=== PATIENT | male | born 1985 | race Caucasian/White ===

== ENCOUNTER 2025-02-03 12:21 | Emergency (ER) | payer OTHER, SELFPAY ==
[2025-02-03 12:24] VITALS: BP 118/74; PULSE 84; RESP 15; TEMP 36.7; O2SAT 100
--- NOTE | 2025-02-03 13:07 | ED.GENADULT ---
HPI - General Adult General Chief complaint: Unspecified Stated complaint: staph infection? Time Seen by Provider: 02/03/25 13:03 History of Present Illness HPI narrative: Pt presents with nasal congestion and sinus congestion. Pt says he tested positive for MRSA in nose yesterday and was told they called in an antibiotic but pt says it was not there this morning in [place]. Pt has history of MRSA sinus infection and thnk he got sptic before. Pt felt febrile earlier and took tylenol. Pt has some body aches. BP fine here. Related Data Home Medications ?Medication ?Instructions ?Recorded ?Confirmed ?Last Taken ?Type Ketamine-Karuna .Route 11/23/22 Unknown History Probiotics BYMOUTH 11/23/22 Unknown History Testosterone .Route 11/23/22 Unknown History Allergies Allergy/AdvReac Type Severity Reaction Status Date / Time No Known Allergies Allergy Verified 11/23/22 09:21 Review of Systems Review of Systems: All systems reviewed & are unremarkable except as noted in HPI and below PMFSH Surgical History Surgical History (Updated 08/09/19 @ 11:13 by Vannesa Blue, FISHING HAND) History of sleeve gastrectomy Family History Family History (Updated 11/23/22 @ 09:12 by Darcie Queen MA) Father History of ETOH abuse Mother Depression Disorder of thyroid History of ETOH abuse Grandparent No problems noted. 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 Gender identity (if verbalized by the patient): Male Agree to blood products: Yes Exam Const: General: cooperative, healthy appearing and no acute distress HENMT: Head: normal to inspection Face/Nose/Sinus: No nasal discharge present and Facial tenderness on exam of face and sinuses Face and sinus: sinus tenderness Mouth: Yes Normal oral and palatal mucosa present Neck: Neck: normal visual inspection, full ROM and no meningeal signs Resp: Effort & Inspection: normal respiratory effort and able to speak in complete sentences Auscultation: clear to auscultation bilaterally Cardio: Rate: regular rate Rhythm: regular rhythm Skin: General skin exam: normal color and no rashes or lesions noted Neuro: General: patient oriented x3, moves all extremities, no meningeal signs and no focal motor deficits Extrem: General: normal to inspection and full ROM Psych: Appearance: grossly normal Mental Status: mental status grossly normal Speech and movement: Normal speech and movement present Affect: normal affect Course Vital Signs Vital signs: Vital Signs Temperature 98.1 F 02/03/25 12:24 Pulse Rate 84 02/03/25 12:24 Respiratory Rate 15 02/03/25 12:24 Blood Pressure 118/74 02/03/25 12:24 Pulse Oximetry 100 02/03/25 12:24 Oxygen Delivery Room Air 02/03/25 12:24 Temperature 98.1 F 02/03/25 12:24 Pulse Rate 78 02/03/25 13:31 Respiratory Rate 16 02/03/25 13:31 Blood Pressure 121/79 02/03/25 13:31 Pulse Oximetry 99 02/03/25 13:31 Oxygen Delivery Room Air 02/03/25 12:24 Medical Decision Making MDM Narrative Medical decision making narrative: discussed with pt and comfortable not doing lab work up will try clidamycin and if worse he will return. Vital Signs Vital Signs: Vital Signs Temperature 98.1 F 02/03/25 12:24 Pulse Rate 84 02/03/25 12:24 Respiratory Rate 15 02/03/25 12:24 Blood Pressure 118/74 02/03/25 12:24 Pulse Oximetry 100 02/03/25 12:24 Oxygen Delivery Room Air 02/03/25 12:24 Temperature 98.1 F 02/03/25 12:24 Pulse Rate 78 02/03/25 13:31 Respiratory Rate 16 02/03/25 13:31 Blood Pressure 121/79 02/03/25 13:31 Pulse Oximetry 99 02/03/25 13:31 Oxygen Delivery Room Air 02/03/25 12:24 Discharge Plan Discharge Clinical Impression: Sinusitis Patient Disposition: Home Condition: Stable Instructions: Antibiotic Form, Sinusitis (ED) Patient Language: Mauritian Prescriptions: New clindamycin HCl [Cleocin HCl] 300 mg capsule 300 mg PO Q6H Qty: 40 0RF No Action Testosterone .Route Rx Instructions: 75mg Weekly Ketamine-Karuna .Route Rx Instructions: 80mg PRN Anxiety Probiotics BYMOUTH Follow-up/Referrals: Patricio Mckeon MD [Physician] -
--- OUTSIDE RECORDS SUMMARY | 2025-02-03 13:14 | XMS_ITS | Data Portability ---
Author Organization [facility] [place], [facility] Address [address] [place] [address] Assessment No assessment recorded. Plan of Treatment Reminders Order Date Submit Date Provider Last Modified By Organization Details Last Modified Time Details Appointments None recorded. Lab None recorded. Referral None recorded. Procedures None recorded. Surgeries None recorded. Imaging None recorded. Medication Orders Augmentin 500 mg-125 mg tablet 2013 014 [email or web address] Not available 4 16:25:46 prednisone 20 mg tablet 2013 014 [email or web address] Not available 4 16:25:46 Patanol 0.1 % eye drops 2013 014 [email or web address] Not available 4 14:59:44 Singulair 10 mg tablet 2013 014 [email or web address] Not available 4 14:59:44 Flonase 50 mcg/actuat ion nasal spray,susp ension 2013 014 [email or web address] Not available 4 15:01:07 Patient TargetsNo targets recorded. Patient InstructionsNo instructions recorded. Reason for Referral None Reported. Problems Name Problem SNOMED Code Status Onset Date Resolution Date Notes Provider Name and Address Organization Details Recorded Time Carpal tunnel syndrome 41930434 Active Claribel bowen [facility] [place] 4 15:01:07 Seasonal allergy 068936741 Active Claribel bowen, [facility] [place] 4 15:01:07 Acute secretory otitis media 204744679 [facility] 4 16:25:46 Problem Notes None recorded. Medical Equipment None Reported. Allergies No known drug allergies Medications Name Sig Start Date Stop Date Status Note LastModified by Organization Details LastModified Time Singulair 10 mg tablet Take 1 tablet every day by oral route as needed for 30 days. 2013 active Not Available Not Available Not Avai lable Patanol 0.1 % eye drops Instill 1 drop twice a day by ophthalmi c route as needed for 30 days. 2013 active Not Available Not Available Not Avai lable prednisone 20 mg tablet Take 1 tablet every day by oral route in the morning for 5 days. 01/07 completed Not Available Not Available Not Available Flonase 50 mcg/actuati on nasal spray,suspe nsion Inhale 2 sprays every day by intranasa l route as needed for 30 days. 2013 active Not Available Not Available Not Avai lable Augmentin 500 mg-125 mg tablet Take 1 tablet every 12 hours by oral route for 10 days. 01/12 completed Not Available Not Available Not Available nabumetone 500 mg tablet TAKE 1 TABLET BY MOUTH TWICE A DAY active Not Available Not Available No t Available Vitals Date Recorded Body height Body weight Body mass index (BMI) Heart rate Respiratory rate Body temperature Systolic blood pressure Diastolic blood pressure Provider Name and Address Organization Details Last Updated DateTime 4 167.64 cm 291690. 12189 g 35.7 kg/m2 76 /min 22 /min 98.7 [degF] 132 mm[Hg] 78 mm[Hg] Claribel Alicia [facility] 4 13:56:27 Date Recorded Body height Body weight Body mass index (BMI) Heart rate Body temperature Systolic blood pressure Diastolic blood pressure Provider Name and Address Organization Details Last Updated DateTime 4 167.64 cm 247275. 21851 g 37 kg/m2 97 /min 98.2 [degF] 120 mm[Hg] 62 mm[Hg] Bailey Cabrera [facility] 4 14:19:40 Date Recorded Body height Body weight Body mass index (BMI) Heart rate Body temperature Systolic blood pressure Diastolic blood pressure Provider Name and Address Organization Details Last Updated DateTime 4 167.64 cm 599313. 2451 g 37.1 kg/m2 83 /min 98.7 [degF] 126 mm[Hg] 68 mm[Hg] Bailey Cabrera [facility] [place] 4 15:57:36 Social History Question Answer Notes LastModified by Organizat ion Details LastModified Time Tobacco Smoking Status Never Smoker Bailey Cabrera [facility] 10/24/2013 16:16:43 What Is Your Level Of Caffeine Consumption? Occasional [email or web address] Information not available 10/24/2013 Education 4 Year College [email or web address] Informatio n not available 10/24/2013 Marital Status Single [email or web address] Informatio n not available 10/24/2013 Sex: Unknown Functional Status Question Answer Note LastModified by Organizat ion Details LastModified Time What is your level of alcohol consumption? Occasional [email or web address] Information not available 10/24/2013 What is your exercise level? Moderate [email or web address] Information not available 10/24/2013 Mental Status None recorded. Family History Relationship Description Onset Age of this Age Resolved Age Notes LastModified by Organization Details LastModified Time Maternal Grandmother Cerebrovascu lar accident [email or web address] Not available 16:16:43 Maternal Grandfather Heart disease [email or web address] Not available 2013 16:16:43 Medical History Condition Response Allergies Y Past Encounters Encounter ID Performer Location Encounter Start Date Encounter Closed Date Diagnosis/Indication Diagnosis SNOMED-CT Code Diagnosis ICD10 Code Diagnosis Note [id number] Claribel Alicia NP [facility] [address] [place] [address] 10/24/2013 10:56:07 10/24/2013 14:05:15 Carpal tunnel syndrome [id number] [place], NUMBING, WEAKNESS RIGHT HAND..WILL GET NCS THRU DR CHEEMA, APT 11-04-13..T HEN APT WITH DR TRAORE ON 12-05-13..S PLINT ORDERED [id number] Claribel Alicia NP [facility] [address] [place] [address] 11/25/2013 14:12:51 11/25/2013 15:17:18 Seasonal allergy 709061886 4-1-14 SPRING AND SUMMER IS WORSE FOR S/S, EYES TEARING Carpal shelly shayne syndrome [id number] TINGLING, NUMBING, WEAKNESS RIGHT HAND..WILL GET NCS THRU DR CHEEMA, APT 11-04-13..T HEN APT WITH DR TRAORE ON 12-05-13..S PLINT ORDERED 11-25-13 FEELING BETTER WITH LESS STRESS ON WRIST [id number] Claribel Alicia NP [facility] [address] [place] [address] 01/02/2014 15:48:08 01/02/2014 16:43:42 Acute secretory otitis media [id number] Health Concerns Section Related Observation LastModified by Organization Detai ls LastModified Time None Recorded Concern Status LastModified by Organization Details LastModified Time None Recorded Advance Directives Directive None Recorded Payers Encounter Date Sequence Insurance Name Policy Number Policy Jefferson Covered Member ID Jefferson Member ID Guarantor Name 10/24/2013 1 [place] [facility] Luke Anderson [id number] Luke Anderson 11/25/2013 1 [place] [facility] [place] [facility] [place] Luke Anderson [id number] Luke Anderson 01/02/2014 1 [place] [facility] [place] Luke Anderson [id number] Luke Anderson
--- OUTSIDE RECORDS SUMMARY | 2025-02-03 13:14 | XMS_ITS | Encounter Summary ---
Author Organization [facility] Address [address] [place] [address] Phone Care Team Providers Care Anthropologist Name Role Phone Patric Vaughn MD Primary Care Provider [phone] Reason for Visit * Reason Comments Medication Refill Encounter Details Date Type Department Care Team (Late st Contact Info) Description 12/12/2022 Refill [facility] [address] [place] [address] Marty Alicea MD [address] [address] Medication Refill Social History Tobacco Use Types Packs/Day Years Used Date Smoking Tobacco: Never Smokeless Tobacco: Never Alcohol Use Standard Drinks/Week Comments No 0 (1 standard drink = 0.6 oz pur e alcohol) PHQ-2 Answer Date Recorded Total Score - Questions 1-9 0 05/28 Sexually Active Control Partners Comments Yes Surgical Female Sex and Gender Information Value Date Recorded Sex Assigned at Not on file 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 Requested Prescriptions Pending Prescriptions Disp Refills Xyosted 75 MG/0.5ML Solution Auto-injector [Pharmacy Med Name: XYOSTED 75MG/0.5ML INJECTION] 2 mL 3 Sig: INJECT 75 MG BY SUBCUTANEOUS ROUTE ONCE A WEEK FOR 28 DAYS. Not Delegated - Androgens Protocol Failed - 12/12/2022 7:02 AM Failed - This refill cannot be delegated Passed - Visit with relevant provider in past 12 months or upcoming 90 days Recent Visits Date Type Provider Dept 01/26/22 Office Visit Marty Alicea MD [facility] [place] Showing recent visits within past 365 days and meeting all other requirements Future Appointments No visits were found meeting these conditions. Showing future appointments within next 90 days and meeting all other requirements documented in this encounter Plan of Treatment Not on file documented as of this encounter Visit Diagnoses Diagnosis Testicular hypofunction Other testicular hypofunction documented in this encounter Additional Health Concerns Infection Onset Date Last Indicated Resolved Time MRSA 05/26/2023 05/26/2023 Assessment Noted Time PHQ-9 Depression Total Score: 0 06/18/20 20 2:00 PM CDT documented as of this encounter Care Teams Anthropologist Relationship Specialty Start Date End Date Patric Vaughn MD [address] [place] [address] [place] [id number] PCP - General Border Machine Operator 01/28/22 documented as of this encounter
--- OUTSIDE RECORDS SUMMARY | 2025-02-03 13:14 | XMS_ITS | Clinical Summary ---
Author Organization [facility] Address [address] [place] [address] Phone Care Team Providers Care Lead Application Architect Name Role Phone Patric Vaughn MD Primary Care Provider Allergies No known active allergies Medications omeprazole (PRILOSEC) 20 MG CAPSULE DELAYED RELEASE Take 20 mg by mouth daily. Active aspirin-acetamin ophen-caffeine (EXCEDRIN EXTRA STRENGTH) 250-250-65 MG Tablet 9 Active Ibuprofen 200 MG Capsule 9 Active omeprazole (PRILOSEC) 20 MG CAPSULE DELAYED RELEASE Take 20 mg by mouth daily. Active busPIRone (BUSPAR) 5 MG Tablet TAKE 1 TABLET BY MOUTH TWICE A DAY 0 Active DULoxetine (CYMBALTA) [address] Particles Take 20 mg by mouth. 0 Active hydrOXYzine (ATARAX) 25 MG Tablet TAKE 1 TABLET BY MOUTH EVERY 6 HOURS NEEDED 0 Active tamsulosin (FLOMAX) 0.4 MG CapsuleIndicatio ns:BPH with obstruction/lowe r urinary tract symptoms Take 1 Cap by mouth daily. 90 Cap 3 0 Active Additional Information Patient not taking.Reported on 05/26/2023 lamoTRIgine (LaMICtal) 25 MG Tablet TAKE ONE TABLET BY MOUTH DAILY FOR TWO WEEKS. THEN TAKE ONE TWICE A DAY 2 Active thyroid (ARMOUR) 180 MG Tablet 180 mg. Active tadalafil (CIALIS) 20 MG Tablet Take 1 Tablet by mouth as needed for Erectile Dysfunction. Pt ordered offline 8 Tablet 5 2 Active Additional Information Patient not taking.Reported on 07/19/2022 Xyosted 75 MG/0.5ML Solution Auto-injectorInd ications:Testicu lar hypofunction INJECT 75 MG BY SUBCUTANEOUS ROUTE ONCE A WEEK FOR 28 DAYS. 2 mL 4 2 Active Multiple Vitamin (MULTIVITAMIN PO) Take by mouth. Activ e sulfamethoxazole -trimethoprim DS (BACTRIM DS, SEPTRA DS) 800-160 MG TabletIndication s:Skin and Soft Tissue Infection Take 1 Tablet by mouth 2 times daily for 7 days. Indications: Infection of the Skin and/or Soft Tissue 14 Tablet 5 025 Active mupirocin (BACTROBAN) 2 % Ointment Application Site: Apply light coat to abscess site to left nose three times daily x 7 days. 15 g 1 5 025 Active amoxicillin-clav ulanate (AUGMENTIN) 875-125 MG TabletIndication s:Skin and Soft Tissue Infection Take 1 Tablet by mouth 2 times daily for 7 days. Indications: Infection of the Skin and/or Soft Tissue 14 Tablet 5 025 Active Active Problems Problem Noted Date Diagnosed Date Hypothyroidism 01/22/2019 Obesity (BMI 30-39.9) 11/12/2018 Gastroesophageal reflux disease 11/12/2018 VITALY (obstructive sleep apnea) 11/12/2018 Bilateral leg pain 11/12/2018 Encounters Date Type Department Care Team Description 02/02/2025 10:05 AM CDT Urgent Care Visit [facility] [address] [facility] [place] [address] Gladis Whitlock, DIE DESIGNER, MOHEL Abscess (Primary Dx) 02/02/2025 Travel from Last 3 Months Immunizations Immunization Administration Dates Next Due DTP Vaccine 01/15/1991, 7,05/19/1986,1985,01/16/1986 Hepatitis B Vaccine, Pediatric/adolescent 12/06/1999,07/12/1999,06/07/1999 Influenza Vaccine 06/17/2018,06/15/2017 Influenza Vaccine, Quadrivalent, PF 07/27/2022,1 MMR Vaccine 04/23/1991,02/15/1987 OPV 01/15/1991, 7,05/19/1986,1985,01/16/1986 TD VACCINE 12/06/1999 TDAP Vaccine 05/28/2018 Family History Medical History Relation Name Comments Hypertension Father Heart Attack Maternal Grandfather Heart Disease Maternal Grandfather Heart Surgery Maternal Grandfather Diabetes Maternal Grandmother Other-comment Maternal Grandmother Obesit y High Cholesterol Mother Other-comment Mother Obesity Thyroid Disease Mother Diabetes Paternal Grandfather Heart Attack Paternal Grandfather Heart Disease Paternal Grandfather Alzheimer's Disease Paternal Grandmother Relation Name Status Comments Father Alive Maternal Grandfather Maternal Grandmother Mother Alive Paternal Grandfather Paternal Grandmother Social History Tobacco Use Types Packs/Day Years Used Date Smoking Tobacco: Never Passive Smoke Exposure: Never Smokeless Tobacco: Never Tobacco Cessation:Counseling Given: Not Answered Alcohol Use Standard Drinks/Week Comments No 0 (1 standard drink = 0.6 oz pur e alcohol) PHQ-2 Answer Date Recorded Total Score - Questions 1-9 0 05/28 Social Connection and Isolation Panel Answer Date Recorded In a typical week, how many times do you talk on the phone with family, friends, or neighbors? More than three times a week 02/02/2025 How often do you get togethe r with friends or relatives? More than three times a week 02/02/2025 How often do you attend chur or islam services? More than 4 times per year 02/02/2025 Do you belong to any clubs o r organizations such as hindu groups, unions, fraternal or athletic groups, or school groups? No 02/02/2025 How often do you attend meet ings of the clubs or organizations you belong to? Never 02/02/2025 Are you , , di vorced, , never , or living with a partner? 02/02/2025 AUDIT-C Answer Date Recorded Q1: How often do you have a drink containing alcohol? Never 02/02/2025 Q2: How many drinks containi ng alcohol do you have on a typical day when you are drinking? Patient does not drink Q3: How often do you have si x or more drinks on one occasion? Never 02/02/2025 Overall Financial Resource Strain (CARDIA) Answe r Date Recorded How hard is it for you to pa y for the very basics like food, housing, medical care, and heating? Not very hard 02/02/2025 [facility] [place] [facility] Occupational Stress Questionnaire Answer Date Recorded Do you feel stress - tense, restless, nervous, or anxious, or unable to sleep at night because your mind is troubled all the time - these days? Not at all 02/02/2025 Exercise Vital Sign Answer Date Recorde d On average, how many days pe r week do you engage in moderate to strenuous exercise (like a brisk walk)? 3 days 02/02/2025 On average, how many minutes do you engage in exercise at this level? 60 min 02/02/2025 Hunger Vital Sign Answer Date Recorded Within the past 12 months, y ou worried that your food would run out before you got the money to buy more. Never true 02/03/20 25 Within the past 12 months, t he food you bought just didn't last and you didn't have money to get more. Never true 02/02/2025 PRAPARE - Transportation Answer Date Re corded In the past 12 months, has l ack of transportation kept you from medical appointments or from getting medications? No 04/2025 In the past 12 months, has l ack of transportation kept you from meetings, work, or from getting things needed for daily living? No 02/02/2025 Housing Stability Vital Sign Answer Efren e Recorded In the last 12 months, was t here a time when you were not able to pay the mortgage or rent on time? No 02/02/2025 In the past 12 months, how m any times have you moved where you were living? 1 02/02/2025 At any time in the past 12 m [facility], were you homeless or living in a residential (including now)? No 02/02/2025 [facility] Utilities Answer Date Recorded In the past 12 months has th e electric, gas, oil, or water company threatened to shut off services in your home? 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 file Not on file Last Filed Vital Signs Vital Sign Reading Time Taken Comments Blood Pressure 119/83 02/02/2025 10:20 AM CDT Pulse 76 02/02/2025 10:15 AM CDT Temperature 36.7 C (98 F) 02/02/2025 10:15 AM CDT Respiratory Rate 18 02/02/2025 10:1 5 AM CDT Oxygen Saturation 97% 02/02/2025 10: 15 AM CDT Inhaled Oxygen Concentration - - Weight 76.5 kg (168 lb 10.4 oz) 025 10:15 AM CDT Height 165.1 cm (5' 5) 02/02/2025 10:1 5 AM CDT Body Mass Index 28.07 02/02/2025 10:15 AM CDT Plan of Treatment Health Maintenance Due Date Last Done Comments Hepatitis C Virus (HCV) Screening 1985 Human Papillomavirus (HPV) Immunization (1 - Male 3-dose series) 2000 SARS-COV-2 Immunization ( season) 2024 Influenza Immunization (Season Ended) 2025 07/27/2022, 06/18/2020, 06/17/2018, Additional history exists DTaP/Tdap/Td Immunization (7 - Td or Tdap) 05/28/2028 05/28/2018, 12/06/1999, 01/15/1991, Additional history exists Respiratory Syncytial Virus (RSV) Immunization (Adult) (1 - 1-dose 75+ series) 2060 Hepatitis B Immunization Completed 000, 07/12/1999, 06/07/1999 Meningococcal Immunization (ACWY) Aged Out No longer eligible based on patient's age to complete this topic Pneumococcal Immunization Combined Aged Out No longer eligible based on patient's age to complete this topic Rotavirus Immunization Aged Out No lo nger eligible based on patient's age to complete this topic Additional Health Concerns Infection Onset Date Last Indicated MRSA 05/26/2023 05/26/2023 Insurance [facility] O[facility] [employer] Advance Directives Documents on File Type Date Recorded 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
--- OUTSIDE RECORDS SUMMARY | 2025-02-03 13:14 | XMS_ITS | Encounter Summary ---
Author Organization [facility] Address [address] 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 Requested Prescriptions Pending Prescriptions Disp Refills Xyosted 75 MG/0.5ML Solution Auto-injector [Pharmacy Med Name: XYOSTED 75MG/0.5ML INJECTION] 2 mL 4 Sig: INJECT 75 MG BY SUBCUTANEOUS ROUTE ONCE A WEEK FOR 28 DAYS. Not Delegated - Androgens Protocol Failed - 07/17/2022 8:02 AM Failed - This refill cannot be delegated Failed - Active on medication list Passed - Visit with relevant provider in past 12 months or upcoming 90 days Recent Visits Date Type Provider Dept 01/26/22 Office Visit Marty Alicea MD [facility] [place] Showing recent visits within past 365 days and meeting all other requirements Future Appointments No visits were found meeting these conditions. 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
--- OUTSIDE RECORDS SUMMARY | 2025-02-03 13:14 | XMS_ITS | Clinical Summary ---
Author Organization [facility] [address] Address [address] [place] [address] Care Team Providers Care Engineering Laboratory Technician Name Role Phone Patric Vaughn MD Primary Care Provider [phone] Allergies No known active allergies Medications multivitamin tablet Take by mouth Active methylPREDNISol one (Medrol Raudel,) 4 mg DosepackIndicat ions:Viral URI with cough follow package directions 21 tablet 4 Active fluticasone propionate (FLONASE) 50 mcg/actuation nasal spray Inhale 2 sprays every day by intranasal route as needed for 30 days. 4 Active hydrOXYzine (VISTARIL) 25 mg capsule TAKE 1 TO 2 CAPSULES BY MOUTH AT BEDTIME NEEDED FOR SLEEP 4 Active predniSONE (DELTASONE) 20 mg tablet TAKE 3 TABLETS BY MOUTH EVERY MORNING FOR 3 DAYS, THEN 2 TABLETS FOR 3 DAYS, THEN 1 TAB FOR 3 DAYS 4 Active methylPREDNISol one (Medrol, Raudel,) 4 mg Dosepack Take as directed on package 1 packet 4 Active tamsulosin (FLOMAX) 0.4 mg extended release capsule Take 1 capsule (0.4 mg total) by mouth nightly 30 capsule 4 Active Active Problems Problem Noted Date Diagnosed Date Prediabetes 12/04/2023 Assessment & Plan (12/04/2023 1:22 PM CDT): Lab Results Component Value Date HGBA1C 5.7 (H) 08/15/2022 HGBA1C 5.2 12/17/2021 HGBA1C 5.7 (H) 05/30/2018 Lab Results Component Value Date LDLCALC 96 08/15/2022 CREATININE 0.97 06/25/2023 Discussed diet changes Recheck A1c now Annual physical exam 12/04/2023 Assessment & Plan (12/04/2023 1:22 PM CDT): Discussed lifestyle modifications, diet and exercise. Routine blood work ordered/reviewed today. Yearly vision and dental examinations. Folliculitis 07/27/2022 Assessment & Plan (07/27/2022 1:22 PM HEALTHCARE TECHNICIAN): Keflex to prevent progression to cellulitis F/u prn Understands if no improvement will come back for re-evaluation Physical exam, annual 12/05/2021 Assessment & Plan (12/05/2021 12:29 PM CDT): Discussed lifestyle modifications, diet and exercise. Routine blood work ordered/reviewed today. Yearly vision and dental examinations. Hypothyroidism 01/22/2019 Assessment & Plan (12/04/2023 1:22 PM CDT): Lab Results Component Value Date TSH 3.94 06/25/2023 Euthyroid at this time Continue without lvt Assessment & Plan (06/07/2022 1:41 PM CDT): Lab Results Component Value Date TSH 2.25 12/17/2021 Not currently taking his synthroid. Assessment & Plan (12/05/2021 12:59 PM CDT): Unsure of levels - currently only on armour thyroid - will check tsh VITALY (obstructive sleep apnea) 11/12/2018 Shifting sleep-work schedule 05/28/2018 Iron deficiency anemia due to chronic blood loss 05/28/2018 Assessment & Plan (05/30/2018 8:49 AM CDT): Labs ordered, will follow. Low testosterone in male 05/28/2018 Assessment & Plan (06/07/2022 1:44 PM CDT): States taht he is doing well. Has been on therapy on and off for years, seems like it was related to weight lifting. States taht he doesn't think he needs it at this point, was referred to endo for it as well Assessment & Plan (05/30/2018 8:52 AM CDT): Has been treated with testosterone in the past. Referred to Equal Opportunity Representative. Resolved Problems Problem Noted Date Diagnosed Date Resolved Date Obesity (BMI 30-39.9) 11/12/20182021 Assessment & Plan (07/03/2019 8:23 AM HEALTHCARE TECHNICIAN): BMI Follow-up includes: education provided. Immunizations Immunization Administration Dates Next Due DTP 01/15/1991, 7,05/19/1986,03/23,01/16/1986 Hep B, Adolescent or Pediatric 12/06/1999,1998,06/07/1999 Influenza, Quadrivalent, Spl it, Preservative Free, Intramuscular 07/27/2022,06/18/2020 Influenza, Trivalent, Preser vative Free, Intramuscular 06/17/2018,06/15/2017 Influenza, Unspecified 11/23/2023(Deferr ed: Patient Refused),06/07/2022(Deferred: Patient Refused),10/26/2021(Deferred: Patient Refused),07/02/2019,06/17/2018, 017 MMR 04/23/1991,02/15/1987 OPV 01/15/1991, 7,05/19/1986,03/23,01/16/1986 Td, adsorbed 12/06/1999 Tdap 05/28/2018 Surgical History Surgery Date Site/Laterality Comments FINGER SURGERY Left LASIK GASTROSTOMY Medical History Medical History Date Comments Allergic Asthma Low testosterone Thyroid disease Sleep difficulties Low testosterone in male Headache Hiatal hernia Family History Medical History Relation Name Comments Hypertension Father No Known Problems Other 1 child Hypertension Paternal Grandfather Relation Name Status Comments Father Alive Mother Alive Other 1 child Alive Paternal Grandfather Social History Tobacco Use Types Packs/Day Years Used Date Smoking Tobacco: Never Smokeless Tobacco: Never Tobacco Cessation:Counseling Given: Not Answered Alcohol Use Standard Drinks/Week Comments Not Currently 0 (1 standard drink = 0.6 oz pur e alcohol) PHQ-2 Answer Date Recorded PHQ-2 Total Score (If total score is 3 or more points, staff should administer the PHQ-9) 0 12/04/2023 Personal Safety Answer Date Recorded Have you ever been in or are you currently in a harmful physical or emotional relationship or is someone making you feel afraid or unsafe? Denies 06/25/2023 Sex and Gender Information Value Date Recorded Sex Assigned at Not on file Legal Sex Male 2:44 AM HEALTHCARE TECHNICIAN Gender Identity Not on file Sexual Orientation Straight 06/07/2022 10 :54 AM CDT Obstetrics History Last Filed Vital Signs Vital Sign Reading Time Taken Comments Blood Pressure 130/70 10/14/2024 4:29 PM HEALTHCARE TECHNICIAN Pulse 113 10/14/2024 4:29 PM HEALTHCARE TECHNICIAN Temperature 36.9 C (98.4 F) 10/14/2024 4:29 PM HEALTHCARE TECHNICIAN Respiratory Rate 18 10/14/2024 4:29 PM HEALTHCARE TECHNICIAN Oxygen Saturation 97% 10/14/2024 4:29 PM HEALTHCARE TECHNICIAN Inhaled Oxygen Concentration - - Weight 78.9 kg (174 lb) 10/14/2024 4:29 PM HEALTHCARE TECHNICIAN Height 165.1 cm (5' 5) 10/14/2024 4:29 PM HEALTHCARE TECHNICIAN Body Mass Index 28.96 10/14/2024 4:29 PM HEALTHCARE TECHNICIAN Plan of Treatment Health Maintenance Due Date Last Done Comments Varicella Vaccines (1 of 2 - 13+ 2-dose series) 1998 Covid-19 Vaccine ( season) 2024 12/21/2020, 11/22/2020 Depression Screening 12/03/2024 12/04/2023, 07/27/2022, 06/07/2022, Additional history exists Regular Well Visit/Exam 18-64 12/03/2024 12/04/2023, 12/05/2021, 05/28/2018 Influenza Vaccine (Season Ended) 2025 07/27/2022, 06/18/2020, 07/02/2019, Additional history exists DTaP/Tdap/Td Vaccine (7 - Td or Tdap) 05/28/2028 05/28/2018, 12/06/1999, 01/15/1991, Additional history exists Hepatitis B Screening Completed 12/05/2023 , 12/06/1999, 07/12/1999, Additional history exists Hepatitis C Screening Completed 12/05/2023 HPV Vaccines Aged Out No longer eligi ble based on patient's age to complete this topic Pneumococcal vaccine <65 Aged Out No longer eligible based on patient's age to complete this topic Procedures Procedure Name Priority Date/Time Associated Diagnosis Comments HEPATITIS C ANTIBODY Routine 12/05/2023 12:56 PM CDT Annual physical exam from Last 3 Months or Most Recently Relevant to Health Maintenance Results * Hepatitis C antibody Blood (12/05/2023 12:56 PM CDT) Hep C Ab Nonreactive Nonreactive Comment: Interpretive Data Nonreactive: Antibodies to HCV not detected. Does NOT exclude the possibility of recent exposure to HCV. Equivocal: Equivocal for HCV antibodies. Supplemental molecular testing will be automatically performed to determine infection status in accordance with current CDC screening recommendations. Reactive: Positive for HCV antibodies. This may represent current or past HCV infection. Supplemental molecular testing will be automatically performed to determine current infection status in accordance with current CDC screening recommendations. Interpretive data was last revised on 2019. Testing performed by: [facility], [address] [place] [address]., [id number] Blood 12/05/2023 12:5 6 PM CDT 12/05/2023 4:59 PM CDT us Patric Vaughn MD LAB MICROBIOLOGY - GENERAL ORDER THAIS Edited Result - Final [facility] ([place] [address] [facility] [place] [address] from Last 3 Months or Most Recently Relevant to Health Maintenance Insurance [employer] [facility] [id number] [facility] [id number] [email or web address] Address: [facility] [id number] [place] [address] Care Teams Engineering Laboratory Technician Relationship Specialty Start Date End Date Patric Vaughn MD PCP - General Family Medicine 12/05/21
--- OUTSIDE RECORDS SUMMARY | 2025-02-03 13:14 | XMS_ITS | Referral Summary ---
Author Organization [facility] [address] Address [address] [place] [address] Care Team Providers Care Payroll Assistant Name Role Phone Patric Vaughn MD Primary Care Provider [phone] Allergies No known active allergies Medications multivitamin [...] 07/27/2022 Assessment & Plan (07/27/2022 1:22 PM AIRCRAFT METALSMITH): Keflex to prevent progression to cellulitis F/u [...] with testosterone in the past. Referred to Analytics Manager. Resolved Problems Problem Noted Date Diagnosed Date Resolved Date Obesity (BMI 30-39.9) 11/12/20182021 Assessment & Plan (07/03/2019 8:23 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): BMI Follow-up includes: education provided. Immunizations Immunization Administration Dates Next Due DTP 01/15/1991, 7,05/19/1986,03/23,01/16/1986 Hep B, Adolescent or Pediatric 12/06/1999,1998,06/07/1999 Influenza, Quadrivalent, Spl it, Preservative Free, Intramuscular 07/27/2022,06/18/2020 Influenza, Trivalent, Preser vative Free, Intramuscular 06/17/2018,06/15/2017 Influenza, Unspecified 11/23/2023(Deferr ed: Patient Refused),06/07/2022(Deferred: Patient Refused),10/26/2021(Deferred: Patient Refused),07/02/2019,06/17/2018, 017 MMR 04/23/1991,02/15/1987 OPV 01/15/1991, 7,05/19/1986,03/23,01/16/1986 Td, adsorbed 12/06/1999 Tdap 05/28/2018 Social History Tobacco Use Types Packs/Day Years [...] on file Legal Sex Male 2:44 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 Gender Identity Not on file Sexual Orientation Straight 06/07/2022 10 :54 AM CDT Last Filed Vital Signs Vital Sign Reading Time Taken Comments Blood Pressure 130/70 10/14/2024 4:29 PM AIRCRAFT METALSMITH Pulse 113 10/14/2024 4:29 PM AIRCRAFT METALSMITH Temperature 36.9 C (98.4 F) 10/14/2024 4:29 PM AIRCRAFT METALSMITH Respiratory Rate 18 10/14/2024 4:29 PM AIRCRAFT METALSMITH Oxygen Saturation 97% 10/14/2024 4:29 PM AIRCRAFT METALSMITH Inhaled Oxygen Concentration - - Weight 78.9 kg (174 lb) 10/14/2024 4:29 PM AIRCRAFT METALSMITH Height 165.1 cm (5' 5) 10/14/2024 4:29 PM AIRCRAFT METALSMITH Body Mass Index 28.96 10/14/2024 4:29 PM AIRCRAFT METALSMITH Plan of Treatment Not on file Procedures Procedure Name Priority Date/Time Associated Diagnosis [...] last revised on 2019. Testing performed by: [facility], [address] [place] [address], [place]., [address] Blood 12/05/2023 12:5 6 PM CDT 12/05/2023 4:59 PM CDT us Patric Vaughn MD LAB MICROBIOLOGY - GENERAL ORDER THAIS Edited Result - Final [facility] ([place]) 1 [facility] [place] [address] from Last 3 Months or Most Recently Relevant to Health Maintenance Insurance [employer] [facility] [employer] Address: [facility] [id number] [place] [id number] [facility] [id number] [facility] [id number] Care Teams Payroll Assistant Relationship Specialty Start Date End Date Patric Vaughn MD PCP - General Family Medicine 12/05/21
--- OUTSIDE RECORDS SUMMARY | 2025-02-03 13:14 | XMS_ITS | Encounter Summary ---
Author Organization [facility] Address [address] [place] [address] Phone Care Team Providers Care Drying Room Supervisor Name Role Phone Patric Vaughn MD Primary Care Provider [phone] Reason for Referral * Consult, Test & Initiate Treatment (Routine) - Open Specialty Diagnoses / Procedures Referred By Contac t Referred To Contact Diagnoses Abscess Yadira Whitlock APRN, JUDY [address] [place] [address] Phone: tel: fax: Kuldip John MD [facility] [place] [address] Phone: tel: fax: Referral ID Status Reason Start Date Expiration Date Visits Re quested Visits Authorized [id number] Open 02/02/2025 1 1 Scheduling Instructions Please evaluate abscess site to left nose region. Reason for Visit * Reason Comments Skin Problem Skin infection on no se since for a week and it just keeps getting worseDoes not itchBacitracin usedNo fever noted Encounter Details Date Type Department Care Team (Latest Contact Info) Description 02/02/2025 10:05 AM CDT Urgent Care Visit [facility] [address] [place] [address] Yadira Whitlock APRN, FILM ARCHIVIST [address] [place] [address] Abscess (Primary Dx) Social History Tobacco Use Types Packs/Day Years [...] How often do you attend chur or quaker services? More than 4 times per year 02/02/2025 Do you belong to any clubs o r organizations such as orthodoxy groups, unions, fraternal or athletic groups, or [...] care, and heating? Not very hard 02/02/2025 [facility] [place] of Occupat ional Health - Occupational Stress Questionnaire Answer Date [...] any time in the past 12 m [facility], were you homeless or living in a alf (including now)? No 02/02/2025 [facility] Utilities Answer Date Recorded In the past 12 months has th e electric, gas, oil, or water company threatened to shut off services in your home? 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 Never 02/02/2025 10:21 AM CDT Brissa Silverman LPN Q2: How many drinks containing alcohol do you have on a typical day when you are drinking? Patient does not drink 02/02/2025 10:21 AM ZACKARYT Brissa Silverman LPN Q3: How often do you have six or more drinks on one occasion? Never 02/02/2025 10:21 AM CDT Brissa Silverman LPN documented as of this encounter Patient Instructions * Attachments The following attachments cannot be sent through Care Everywhere. * Skin Abscess (Kenyan) * Cellulitis Adult Roep-yn-Kwsl (Kenyan) documented in this encounter Progress Notes * Yadira Whitlock APRN, FILM ARCHIVIST - 02/02/2025 10:05 AM CDT Images from the original note were not included. Subjective: Subjective Skin Problem Patient arrives today for evaluation of lesion to left side of his nose, which he said began one week ago. He said the site has worsened over time, denies itching or pain. He said he has been applying Bacitracin. He denies fever or chills. Vital Signs 02/02/2025 1020 02/02/2025 1015 Temp: -- 98 ??F (36.7 ??C) Resp: -- 18 Pulse: -- 76 BP: 119/83 122/90 SpO2: -- 97 % Medications Ordered Prior to Encounter[1] Past Medical History[2] Past Surgical History[3] Family History Problem Relation Age of Onset Thyroid Disease Mother High Cholesterol Mother Other-comment Mother Obesity Hypertension Father Diabetes Maternal Grandmother Other-comment Maternal Grandmother Obesity Heart Attack Maternal Grandfather Heart Disease Maternal Grandfather Heart Surgery Maternal Grandfather Alzheimer's Disease Paternal Grandmother Heart Attack Paternal Grandfather Heart Disease Paternal Grandfather Diabetes Paternal Grandfather Review of Systems Constitutional: Negative. HENT: Negative. Eyes: Negative. Respiratory: Negative. Cardiovascular: Negative. Gastrointestinal: Negative. Endocrine: Negative. Genitourinary: Negative. Musculoskeletal: Negative. Skin: Patient arrives today for evaluation of lesion to left side of his nose, which he said began one week ago. He said the site has worsened over time, denies itching or pain. Allergic/Immunologic: Negative. Neurological: Negative. Hematological: Negative. Psychiatric/Behavioral: Negative. Objective: Objective Physical Exam Vitals and nursing note reviewed. Constitutional: Appearance: Normal appearance. He is normal weight. HENT: Head: Normocephalic and atraumatic. Right Ear: Tympanic membrane, ear canal and external ear normal. Left Ear: Tympanic membrane, ear canal and external ear normal. Nose: Comments: Area of erythema, mild inflammation noted to left side of nose. Scab present to site. No red streaking/periorbital edema/edema of nostril/or purulent drainage noted to site. Mouth/Throat: Mouth: Mucous membranes are moist. Pharynx: Oropharynx is clear. Eyes: Conjunctiva/sclera: Conjunctivae normal. Pupils: Pupils are equal, round, and reactive to light. Cardiovascular: Rate and Rhythm: Normal rate and regular rhythm. Pulses: Normal pulses. Heart sounds: Normal heart sounds. Pulmonary: Effort: Pulmonary effort is normal. Breath sounds: Normal breath sounds. Abdominal: General: Abdomen is flat. Palpations: Abdomen is soft. Musculoskeletal: Cervical back: Normal range of motion. Skin: General: Skin is warm and dry. Capillary Refill: Capillary refill takes less than 2 seconds. Findings: Erythema present. Comments: Area of erythema, mild inflammation noted to left side of nose. Scab present to site. No red streaking/periorbital edema/edema of nostril/or purulent drainage noted to site. Neurological: General: No focal deficit present. Mental Status: He is alert and oriented to person, place, and time. Psychiatric: Mood and Affect: Mood normal. Behavior: Behavior normal. Thought Content: Thought content normal. Assessment and Plan Assessment & Plan See Diagnoses, Orders, Follow-up, and Instructions Good oral hydration A referral has been forwarded to General Surgeon, Eh Knox MD. Please schedule an appointment(Patient provided with Dr. Knox's card.). Complete prescribed antibiotic regimen Be seen immediately in the emergency room if you develop consistent fevers of 101 degrees or greater, shortness of breath/difficulty breathing, lethargy, inability to keep food or liquids down, you develop swelling around your eyes/to your face, you are unable to open your mouth or swallow saliva/drooling, you notice increasing swelling/pain/red streaking/purulent, odious drainage from abscess site, you develop stiff neck/cannot turn your head, or you experience chest pain. Recommend probiotics to maintain GI vicki. Clinical References Skin Abscess A skin abscess is an infected area on or under your skin that contains a collection of pus and other material. An abscess may also be called a furuncle, carbuncle, or boil. An abscess can occur in oron almost any part of your body. Some abscesses break open (rupture) on their own. Most continue to get worse unless they are treated. The infection can spread deeper into the body and eventually into your blood, which can make you feel ill. Treatment usually involves draining the abscess. What are the causes? An abscess occurs when germs, like bacteria, pass through your skin and cause an infection. This may be caused by: A scrape or cut on your skin. A puncture wound through your skin, including a needle injection or insect bite. Blocked oil or sweat glands. Blocked and infected hair follicles. A cyst that forms beneath your skin (sebaceous cyst) and becomes infected. What increases the risk? This condition is more likely to develop in people who: Have a weak body defense system (immune system). Have diabetes. Have dry and irritated skin. Get frequent injections or use illegal IV drugs. Have a foreign body in a wound, such as a splinter. Have problems with their lymph system or veins. What are the signs or symptoms? Symptoms of this condition include: A painful, firm bump under the skin. A bump with pus at the top. This may break through the skin and drain. Other symptoms include: Redness surrounding the abscess site. Warmth. Swelling of the lymph nodes (glands) near the abscess. Tenderness. A sore on the skin. How is this diagnosed? This condition may be diagnosed based on: A physical exam. Your medical history. A sample of pus. This may be used to find out what is causing the infection. Blood tests. Imaging tests, such as an ultrasound, CT scan, or MRI. How is this treated? A small abscess that drains on its own may not need treatment. Treatment for larger abscesses may include: Moist heat or heat pack applied to the area several times a day. A procedure to drain the abscess (incision and drainage). Antibiotic medicines. For a severe abscess, you may first get antibiotics through an IV and then change to antibiotics by mouth. Follow these instructions at home: Medicines Take goem-irr-paomgck and prescription medicines only as told by your health care provider. If you were prescribed an antibiotic medicine, take it as told by your health care provider. Do notstop taking the antibiotic even if you start to feel better. Abscess care If you have an abscess that has not drained, apply heat to the affected area. Use the heat source that your health care provider recommends, such as a moist heat pack or a heating pad. Place a towel between your skin and the heat source. Leave the heat on for 20-30 minutes. Remove the heat if your skin turns bright red. This is especially important if you are unable to feel pain, heat, or cold. You may have a greater risk of getting burned. Follow instructions from your health care provider about how to take care of your abscess. Make sure you: Cover the abscess with a bandage (dressing). Change your dressing or gauze as told by your health care provider. Wash your hands with soap and water before you change the dressing or gauze. If soap and water are not available, use hand chemical unit operator. Check your abscess every day for signs of a worsening infection. Check for: More redness, swelling, or pain. More fluid or blood. Warmth. More pus or a bad smell. General instructions To avoid spreading the infection: Do not share personal care items, towels, or hot tubs with others. Avoid making skin contact with other people. Keep all follow-up visits as told by your health care provider. This is important. Contact a health care provider if you have: More redness, swelling, or pain around your abscess. More fluid or blood coming from your abscess. Warm skin around your abscess. More pus or a bad smell coming from your abscess. Muscle aches. Chills or a general ill feeling. Get help right away if you: Have severe pain. See red streaks on your skin spreading away from the abscess. See redness that spreads quickly. Have a fever or chills. Summary A skin abscess is an infected area on or under your skin that contains a collection of pus and other material. A small abscess that drains on its own may not need treatment. Treatment for larger abscesses may include having a procedure to drain the abscess and taking an antibiotic. This information is not intended to replace advice given to you by your health care provider. Make sure you discuss any questions you have with your health care provider. Document Revised: 05/22/2022 Document Reviewed: 05/22/2022 [employer] Patient Education ?? 2021 [place]. Cellulitis, Adult Cellulitis is a skin infection. The infected area is often warm, red, swollen, and sore. It occurs most often in the arms and lower legs. It is very important to get treated for this condition. What are the causes? This condition is caused by bacteria. The bacteria enter through a break in the skin, such as a cut, burn, insect bite, open sore, or crack. What increases the risk? This condition is more likely to occur in people who: Have a weak body defense system (immune system). Have open cuts, banks, bites, or scrapes on the skin. Are older than 60 years of age. Have a blood sugar problem (diabetes). Have a long-lasting (chronic) liver disease (cirrhosis) or kidney disease. Are very overweight (obese). Have a skin problem, such as: Itchy rash (eczema). Slow movement of blood in the veins (venous stasis). Fluid buildup below the skin (edema). Have been treated with high-energy rays (radiation). Use IV drugs. What are the signs or symptoms? Symptoms of this condition include: Skin that is: Red. Streaking. Spotting. Swollen. Sore or painful when you touch it. Warm. A fever. Chills. Blisters. How is this diagnosed? This condition is diagnosed based on: Medical history. Physical exam. Blood tests. Imaging tests. How is this treated? Treatment for this condition may include: Medicines to treat infections or allergies. Home care, such as: Rest. Placing cold or warm cloths (compresses) on the skin. Hospital care, if the condition is very bad. Follow these instructions at home: Medicines Take fhxf-tjk-rzfnrwz and prescription medicines only as told by your doctor. If you were prescribed an antibiotic medicine, take it as told by your doctor. Do not stop taking it even if you start to feel better. General instructions Drink enough fluid to keep your pee (urine) pale yellow. Do not touch or rub the infected area. Raise (elevate) the infected area above the level of your heart while you are sitting or lying down. Place cold or warm cloths on the area as told by your doctor. Keep all follow-up visits as told by your doctor. This is important. Contact a doctor if: You have a fever. You do not start to get better after 1-2 days of treatment. Your bone or joint under the infected area starts to hurt after the skin has healed. Your infection comes back. This can happen in the same area or another area. You have a swollen bump in the area. You have new symptoms. You feel ill and have muscle aches and pains. Get help right away if: Your symptoms get worse. You feel very sleepy. You throw up (vomit) or have watery poop (diarrhea) for a long time. You see red streaks coming from the area. Your red area gets larger. Your red area turns dark in color. These symptoms may represent a serious problem that is an emergency. Do not wait to see if the symptoms will go away. Get medical help right away. Call your local emergency services (911 in the [place] Do not drive yourself to the hospital. Summary Cellulitis is a skin infection. The area is often warm, red, swollen, and sore. This condition is treated with medicines, rest, and cold and warm cloths. Take all medicines only as told by your doctor. Tell your doctor if symptoms do not start to get better after 1-2 days of treatment. This information is not intended to replace advice given to you by your health care provider. Make sure you discuss any questions you have with your health care provider. Document Revised: 05/25/2022 Document Reviewed: 05/25/2022 [employer] Patient Education ?? 2021 [employer] [1] Current Outpatient Medications on File Prior to Visit Medication Sig Dispense Refill sbaovnz-sntikkdvymblt-hqrwbqgx (EXCEDRIN EXTRA STRENGTH) 250-250-65 MG Tablet busPIRone (BUSPAR) 5 MG Tablet TAKE 1 TABLET BY MOUTH TWICE A DAY (Patient not taking: Reported on 07/25/2021) DULoxetine (CYMBALTA) [address] Particles Take 20 mg by mouth. (Patient not taking: Reportedon 07/25/2021) hydrOXYzine (ATARAX) 25 MG Tablet TAKE 1 TABLET BY MOUTH EVERY 6 HOURS NEEDED (Patient not taking: Reported on 07/25/2021) Ibuprofen 200 MG Capsule (Patient not taking: Reported on 07/25/2021) lamoTRIgine (LaMICtal) 25 MG Tablet TAKE ONE TABLET BY MOUTH DAILY FOR TWO WEEKS. THEN TAKE ONE TWICE A DAY (Patient not taking: Reported on 07/19/2022) Multiple Vitamin (MULTIVITAMIN PO) Take by mouth. (Patient not taking: Reported on 05/26/2023) omeprazole (PRILOSEC) 20 MG CAPSULE DELAYED RELEASE Take 20 mg by mouth daily. (Patient not taking:Reported on 07/25/2021) omeprazole (PRILOSEC) 20 MG CAPSULE DELAYED RELEASE Take 20 mg by mouth daily. (Patient not taking:Reported on 07/25/2021) tadalafil (CIALIS) 20 MG Tablet Take 1 Tablet by mouth as needed for Erectile Dysfunction. Pt ordered offline (Patient not taking: Reported on 07/19/2022) 8 Tablet 5 tamsulosin (FLOMAX) 0.4 MG Capsule Take 1 Cap by mouth daily. (Patient not taking: Reported on 07/25/2021) 90 Cap 3 thyroid (ARMOUR) 180 MG Tablet 180 mg. (Patient not taking: Reported on 04/21/2022) Xyosted 75 MG/0.5ML Solution Auto-injector INJECT 75 MG BY SUBCUTANEOUS ROUTE ONCE A WEEK FOR 28 DAYS. 2 mL 4 No current facility-administered medications on file prior to visit. [2] Past Medical History: Diagnosis Date GERD (gastroesophageal reflux disease) History of ear infection Obesity Sleep apnea [3] Past Surgical History: Procedure Laterality Date GASTRECTOMY 2019 GASTRECTOMY VASECTOMY 01/25/2021 documented in this encounter Miscellaneous Notes * Addendum Note - Yadira Whitlock APRN, CNP - 02/02/2025 10:05 AM CDTAddended by: YADIRA WHITLOCK on: 02/02/2025 01:38 PM Modules accepted: Orders documented in this encounter Plan of Treatment Scheduled Referrals Name Type Priority Associated Diagnoses Orde r Schedule EXTERNAL ENT REFERRAL HST Outpatient Referral Routine Abscess Expected: 02/02/2025, Expires: 02/02/2026 documented as of this encounter Visit Diagnoses Diagnosis Abscess- Primary Cellulitis and abscess of unspecified site documented in this encounter Additional Health Concerns Infection Onset Date Last Indicated Resolved Time MRSA 05/26/2023 05/26/2023 Assessment Noted Time PHQ-9 Depression Total Score: 0 06/18/20 20 2:00 PM CDT documented as of this encounter Care Teams Drying Room Supervisor Relationship Specialty Start Date End Date Patric Vaughn MD [address] [facility] [address] [place] [id number] PCP - General Conveyor Installer 01/28/22 documented as of this encounter
--- OUTSIDE RECORDS SUMMARY | 2025-02-03 13:14 | XMS_ITS | Encounter Summary ---
Author Organization [facility] Care Team Providers Care Boatbuilder Wood Name Role Phone Patric Vaughn MD Primary Care Provider [phone] Encounter Details Date Type Department Care Team (Latest Contact Info) Description 02/02/2025 Travel Social History Tobacco Use Types Packs/Day Years Used Date Smoking Tobacco: Never Passive Smoke Exposure: Never Smokeless Tobacco: Never Alcohol Use Standard [...] week 02/02/2025 How often do you attend [facility] or mandaeism services? More than 4 times per year 02/02/2025 Do you belong to any clubs o r organizations such as buddhist groups, unions, fraternal or athletic groups, or [...] care, and heating? Not very hard 02/02/2025 [facility] [place] of Occupat ional Health - Occupational Stress [...] any time in the past 12 m [facility], were you homeless or living in a halfway (including now)? No 02/02/2025 [facility] Utilities Answer Date Recorded In the past 12 months has th e electric, gas, oil, or water company threatened to shut off services in your home? 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 Never 02/02/2025 10:21 AM Brissa Boyce LPN Q2: How many drinks containing alcohol do you have on a typical day when you are drinking? Patient does not drink 02/02/2025 10:21 AM Brissa Boyce LPN Q3: How often do you have six or more drinks on one occasion? Never 02/02/2025 10:21 AM Brissa Boyce LPN documented as of this encounter Plan of Treatment Not on file documented as of this encounter Visit Diagnoses Not on filedocumented in this encounter Additional Health Concerns Infection Onset Date Last Indicated Resolved Time MRSA 05/26/2023 05/26/2023 Assessment Noted Time PHQ-9 Depression Total Score: 0 06/18/20 20 2:00 PM CDT documented as of this encounter Care Teams Boatbuilder Wood Relationship Specialty Start Date End Date Patric Vaughn MD [address] [facility] [address] [place] [id number] PCP - General Livestock Farm Workers 01/28/22 documented as of this encounter
[2025-02-03 13:31] VITALS: BP 121/79; PULSE 78; RESP 16; O2SAT 99
--- OUTSIDE RECORDS SUMMARY | 2025-02-03 14:20 | XMS_ITS | Clinical Summary ---
Author Organization [facility] Address [address] [place] [address] Phone Care Team Providers Care Clinic Physician Name Role Phone Patric Vaughn MD Primary Care Provider [phone] Allergies No known active allergies Medications omeprazole [...] 02/02/2025 10:05 AM CDT Urgent Care Visit [facility] [address] [facility] [place] [id number] Gladis Whitlock, ARTIFICIAL PLASTIC EYE MAKER, FORKLIFT DRIVER Abscess (Primary Dx) 02/02/2025 Travel from Last [...] How often do you attend chur or scientologist services? More than 4 times per year 02/02/2025 Do you belong to any clubs o r organizations such as worship groups, unions, fraternal or athletic groups, or [...] care, and heating? Not very hard 02/02/2025 [facility] [place] [facility] Occupational Stress Questionnaire Answer [...] any time in the past [address] [facility], were you homeless or living in a half-way (including now)? No 02/02/2025 [facility] Utilities Answer Date Recorded In the past 12 months has th e electric, gas, oil, or water company threatened to shut off services in your home? 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
--- OUTSIDE RECORDS SUMMARY | 2025-02-03 14:20 | XMS_ITS | Encounter Summary ---
Author Organization [employer] Care Team Providers Care Wool Classer Name Role Phone Patric Vaughn MD Primary Care Provider [phone] Encounter Details Date Type Department Care Team [...] week 02/02/2025 How often do you attend [facility] or temple services? More than 4 times per year 02/02/2025 Do you belong to any clubs o r organizations such as yarsani groups, unions, fraternal or athletic groups, or [...] care, and heating? Not very hard 02/02/2025 [facility] of Occupat ional Health - Occupational Stress [...] any time in the past 12 m [facility], were you homeless or living in a fci (including now)? No 02/02/2025 [facility] Utilities Answer Date Recorded In the past 12 months has th e electric, gas, oil, or water company threatened to shut off services in your home? No 02/02/2025 Sexually Active Control Partners Comments Yes Surgical Female Sex and Gender Information Value Date Recorded Sex Assigned at Not on file Legal Sex Male 5:35 PM DIRECTOR HEALTH Gender Identity Not on file Sexual Orientation [...] documented as of this encounter Care Teams Wool Classer Relationship Specialty Start Date End Date Patric Vaughn MD [address] [facility] [address] [address] [place] [address] PCP - General Metal Control Coordinator 01/28/22 documented as of this encounter
--- OUTSIDE RECORDS SUMMARY | 2025-02-03 14:20 | XMS_ITS | Clinical Summary ---
Author Organization [facility] Address [address] [place] [id number] Care Team Providers Care Assistant Tennis Coach Name Role Phone Claude Jason MD Unavailable Claude Jason MD Unavailable Patric Vaughn MD Primary Care Provider [phone] Source Comments [facility],non-owned Affiliates and Associated Physician Practices is amultiple site organization consisting of ambulatory clinics and hospital sitesin [place], [place], [place]. This disclosure is being madepursuant to the Care Everywhere program and may not contain all information available regarding this patient. Last updated 18.[facility] Allergies No known active allergies Medications * This document contains information received from the source organization and may not represent a complete record from that organization. * Be aware that medications may not be up to date on this document. Alwaysverify current medications with the patient. DULoxetine (CYMBALTA) 20 MG capsule Take 1 capsule by mouth once daily After 7 days, start taking 2 capsules once daily 60 capsule 0 Active Additional Information Patient not taking.Reported on 11/06/2024 Active Problems Problem Noted Date Diagnosed Date Obesity (BMI 35.0-39.9 without comorbidity) 10/26 Encounters Date Type Department Care Team Description 12/08/2024 6:46 PM CDT - 12/08/2024 7:02 PM CDT Emergency ER at [facility] [address] [place] [id number] Penile discharge; Acute urogenital gonorrhea Discharge Disposition: Other Facility Not Defined Elsewhere 11/10/2024 Telephone [facility] [address] [place] [address] Priscilla Friedman RN Results (Pt called to inquire about culture results. Informed pt of results and confirmed current antibiotic therapy. Pt states he is getting wound care at a clinic in a town where he lives. ) 11/06/2024 5:15 PM CDT Office Visit [facility] [address] [place] [phone] Abscess of leg, right (Primary Dx) 11/06/2024 2:24 PM CDT - 11/06/2024 11:59 PM CDT Hospital Encounter [facility] [address], [place] [phone] Yoselin Wood APRN-JUDY Discharge Disposition: Home or Self Care 11/05/2024 Travel from Last 3 Months Family History Medical History Relation Name Comments Stroke Maternal Grandfather brain a neurysm Stroke Maternal Grandmother brain a neurysm Thyroid Disease Mother Relation Name Status Comments Father Alive Maternal Grandfather Maternal Grandmother Mother Alive Social History Tobacco Use Types Packs/Day Years Used Date Smoking Tobacco: Never Smokeless Tobacco: Never Tobacco Cessation:Counseling Given: No Alcohol Use Standard Drinks/Week Comments Yes 0 (1 standard drink = 0.6 oz pur e alcohol) 3x a week PHQ-2 Answer Date Recorded Patient Health Questionnaire-2 Score 0 11/06/2024 Sex and Gender Information Value Date Recorded Sex Assigned at Not on file Legal Sex Male 5:40 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 Gender Identity Not on file Sexual Orientation Not on file Last Filed Vital Signs Vital Sign Reading Time Taken Comments Blood Pressure 165/105 12/08/2024 5:47 PM CDT Pulse 94 12/08/2024 5:47 PM CDT Temperature 37 C (98.6 F) 12/08/2024 5:47 PM CDT Respiratory Rate 16 12/08/2024 5:47 PM CDT Oxygen Saturation 99% 12/08/2024 5:47 PM CDT Inhaled Oxygen Concentration - - Weight 83 kg (182 lb 15.7 oz) 12/08/2024 5:47 PM CDT Height 167.6 cm (5' 6) 12/08/2024 5:47 PM CDT Body Mass Index 29.53 12/08/2024 5:47 PM CDT Plan of Treatment Health Maintenance Due Date Last Done Comments HIV SCREENING 2000 HEPATITIS C SCREENING 11/09/2003 DTAP/TDAP/TD VACCINES (1 - Tdap) 2004 HEPATITIS B VACCINE (1 of 3 - 19+ 3-dose series) 2004 COVID-19 VACCINE (1 - 2023- season) 2024 INFLUENZA VACCINE (Season Ended) 2025 07/27/2022, 06/18/2020, 07/02/2019, Additional history exists ZOSTER VACCINE (1 of 2) 11/14/2035 DEPRESSION SCREENING Completed 11/06/2024 HIB VACCINE Aged Out No longer eligi ble based on patient's age to complete this topic HPV VACCINE Aged Out No longer eligi ble based on patient's age to complete this topic MENINGOCOCCAL (Group B) VACCINE SHARED DECISION-MAKING Aged Out No longer eligible based on patient's age to complete this topic MENINGOCOCCAL GROUPS A/C/Y/W VACCINE Aged Out No longer eligible based on patient's age to complete this topic PNEUMOCOCCAL VACCINE Aged Out No long er eligible based on patient's age to complete this topic Procedures Procedure Name Priority Date/Time Associated Diagnosis Comments URINALYSIS REFLEX MICROSCOPIC REFLEX CULTURE STAT 12/08/2024 6:15 PM CDT CULTURE URINE STAT 12/08/2024 6:15 PM CDT COMPREHENSIVE METABOLIC PANEL STAT 12/08/2024 6:14 PM CDT CBC W AUTO DIFFERENTIAL STAT 12/08/2024 6:14 PM CDT CULTURE WOUND+GRAM STAIN Routine 11/06/2024 2:35 PM CDT Abscess of leg, right from Last 3 Months Results * (ABNORMAL) URINALYSIS REFLEX MICROSCOPIC REFLEX CULTURE (12/08/2024 6:15 PM CDT) Color UA Yellow Yellow, Straw 12/08/2024 6:35 PM CDT [facility] Clarity UA Turbid(A) Clear 12/08/2024 6:35 PM CDT [facility] Glucose UA 3+(A) Normal 12/08/2024 6:35 PM CDT [facility] Bilirubin UA Negative Negative 12/08/2024 6:35 PM CDT [facility] Ketone UA 1+(A) Negative 12/08/2024 6:35 PM CDT [facility] Specific [place] UA 1.033(H) 1.005 - 1.030 12/08/2024 6:35 PM CDT [facility] Blood UA Negative Negative 12/08/2024 6:35 PM CDT [facility] pH UA 6.5 5.0 - 9.0 pH 12/08/2024 6:35 PM [facility] Protein UA Trace(A) Negative 12/08/2024 6:35 PM CDT [facility] Urobilinogen UA 3.0(A) Normal mg/dL 12/08/2024 6:35 PM CDT [facility] Nitrite UA Negative Negative 12/08/2024 6:35 PM CDT [facility] Leukocyte Esterase UA 500 RAFAEL/uL(A) Negative 12/08/2024 6:35 PM CDT [facility] RBC UA 3-5 0 - 5 # /hpf 12/08/2024 6:35 PM [facility] WBC UA >100(A) 0 - 5 # /hpf 12/08/2024 6:35 PM T [facility] Bacteria UA Trace(A) None Seen 12/08/2024 6:35 PM T [facility] Squamous Epithelial Cells None Seen 0 - 5 /hpf 12/08/2024 6:35 PM T [facility] Mucus UA 4+ /LPF 12/08/2024 6:35 PM [facility] Urine URINE SPECIMEN OBTAINED BY CLEAN CATCH PROCEDURE / Unknown Collection / Unknown 12/08/2024 6:15 PM CDT 12/08/2024 6:20 PM CDT us Dmitriy Leung PA-C LAB - URINALYSIS ORDERABLES Fi nal Result [facility] [address] * CULTURE URINE (12/08/2024 6:15 PM CDT) Culture Urine No growth (<100 CFU/mL) GENO 12/09/2024 11:33 PM CDT [facility] Urine URINE SPECIMEN OBTAINED BY CLEAN CATCH PROCEDURE / Unknown Collection / Unknown 12/08/2024 6:15 PM CDT 12/08/2024 6:20 PM CDT us Dmitriy Leung PA-C LAB - MICROBIOLOGY ORDERABLES Final Result [facility] [address] [place] [id number], [facility] [phone] * (ABNORMAL) CBC W AUTO DIFFERENTIAL (12/08/2024 6:14 PM CDT) WBC 10.4 4.0 - 10.7 x10E9/L 12/08/2024 6:23 PM CDT [facility] RBC Count 5.12 4.30 - 5.80 x10E12/L 12/08/2024 6:23 PM CDT [facility] Hemoglobin 15.6 13.3 - 17.5 g/dL 12/08/2024 6:23 PM CDT [facility] Hematocrit 45.9 38.7 - 51.1 % 12/08/2024 6:23 PM CDT [facility] MCV 89.6 80.0 - 98.0 fL 12/08/2024 6:23 PM CDT [facility] MCH 30.5 26.7 - 33.6 pg 12/08/2024 6:23 PM CDT [facility] MCHC 34.0 31.7 - 36.3 g/dL 12/08/2024 6:23 PM CDT [facility] RDW-CV 13.0 11.3 - 14.8 % 12/08/2024 6:23 PM CDT [facility] Platelet Count 235 150 - 420 x10E9/L 12/08/2024 6:23 PM CDT [facility] MPV 8.5 7.8 - 11.4 fL 12/08/2024 6:23 PM CDT [facility] Neutrophil % 59.0 41.0 - 74.0 % 12/08/2024 6:23 PM CDT [facility] Lymphocyte % 25.5 17.0 - 47.0 % 12/08/2024 6:23 PM CDT [facility] Monocyte % 9.3 3.0 - 11.0 % 12/08/2024 6:23 PM CDT [facility] Eosinophil % 2.4 0.0 - 7.0 % 12/08/2024 6:23 PM CDT [facility] Basophil % 1.3 0.0 - 1.6 % 12/08/2024 6:23 PM CDT [facility] Immature Granulocytes % 2.5(H) 0.0 - 1.0 % 12/08/2024 6:23 PM CDT [facility] Neutrophil Absolute 6.11 1.60 - 7.50 x10E9/L 12/08/2024 6:23 PM CDT [facility] Lymphocyte Absolute 2.64 1.00 - 4.40 x10E9/L 12/08/2024 6:23 PM CDT [facility] Monocyte Absolute 0.96 0.15 - 1.00 x10E9/L 12/08/2024 6:23 PM CDT [facility] Eosinophil Absolute 0.25 0.00 - 0.60 x10E9/L 12/08/2024 6:23 PM CDT [facility] Basophil Absolute 0.13 0.00 - 0.13 x10E9/L 12/08/2024 6:23 PM [facility] Blood BLOOD SPECIMEN / Unknown Venipuncture / Unknown 12/08/2024 6:14 PM CDT 12/08/2024 6:20 PM CDT us Dmitriy Leung PA-C LAB - HEMATOLOGY ORDERABLES Fi nal Result [facility] [address] [place] [id number] * COMPREHENSIVE METABOLIC PANEL (12/08/2024 6:14 PM CDT) [facility] Glucose 93 70 - 99 mg/dL 12/08/2024 6:36 PM CDT [facility] Sodium 140 136 - 145 mmol/L 12/08/2024 6:36 PM [facility] Potassium 4.4 3.5 - 5.1 mmol/L 12/08/2024 6:36 PM [facility] Chloride 107 98 - 107 mmol/L 12/08/2024 6:36 PM [facility] CO2 25 22 - 29 mmol/L 12/08/2024 6:36 PM [facility] Calcium 9.4 8.4 - 10.4 mg/dL 12/08/2024 6:36 PM [facility] Anion Gap 8 6 - 16 mmol/L 12/08/2024 6:36 PM [facility] BUN 14 5.3 - 18.7 mg/dL 12/08/2024 6:36 PM [facility] Creatinine 1.04 0.72 - 1.25 mg/dL 12/08/2024 6:36 PM [facility] Alkaline Phosphatase 96 40 - 150 U/L 12/08/2024 6:36 PM [facility] ALT 34 6 - 57 U/L 12/08/2024 6:36 PM [facility] AST 34 10 - 48 U/L 12/08/2024 6:36 PM [facility] Protein Total 7.3 6.4 - 8.3 gm/dL 12/08/2024 6:36 PM [facility] Albumin 3.8 3.4 - 5.0 gm/dL 12/08/2024 6:36 PM [facility] Bilirubin Total 0.6 0.2 - 1.2 mg/dL 12/08/2024 6:36 PM [facility] eGFR by CKD-EPI >90 >=90 mL/min/1.7 3 m2 12/08/2024 6:36 PM [facility] Blood BLOOD SPECIMEN / Unknown Venipuncture / Unknown 12/08/2024 6:14 PM CDT 12/08/2024 6:20 PM T us Dmitriy Leung PA-C LAB - CHEMISTRY ORDERABLES Fin al Result [facility] [address] [id number] * (ABNORMAL) CULTURE WOUND+GRAM STAIN (11/06/2024 2:35 PM CDT) Culture Heavy Staphylococcus aureus methicillin-resista nt (MRSA)(A) GENO 11/09/2024 2:57 AM CDT [facility] Comment:Staphylococcus aureu s methicillin-resistant (MRSA) detected by penicillin binding protein immunoassay. Contact precautions required. Conventional antibiotic susceptibility testing to follow. Gram Stain Light Polymorphonuclear cells 11/09/2024 2:57 AM CDT [facility] Gram Stain No organisms seen 025 2:57 AM CDT [facility] Microbiology SPECIMEN FROM ABSCESS / Unknown Collection / Unknown 11/06/2024 2:35 PM CDT 11/06/2024 2:35 PM CDT Narrative [facility] - 11/09/2024 2:57 AM CDT Methicillin-resistant Staphylococci (MRSA) are resistant to all currently available beta-lactam antibiotics with the exception of the newer cephalosporins with anti-MRSA activity. Contact precautions required. Organism Antibiotic Method Susceptibility Staphylococcus aureus methicillin-resistant (MRSA) Clindamycin GENO >=4 ug/mL: Resistant Staphylococcus aureus methicillin-resistant (MRSA) Doxycycline GENO <=0.5 ug/mL: Susceptible Staphylococcus aureus methicillin-resistant (MRSA) Inducible Clindamycin Resistance GENO NEG ug/mL: Neg Staphylococcus aureus methicillin-resistant (MRSA) Oxacillin GENO >=4 ug/mL: Resistant Staphylococcus aureus methicillin-resistant (MRSA) Trimethoprim-sulfamethox azole GENO >=320 ug/mL: Resistant Staphylococcus aureus methicillin-resistant (MRSA) Vancomycin GENO <=0.5 ug/mL: Susceptible Yoselin Wood VAT HOUSE LABORER-BOOKING SUPERVISOR LAB - MICROBIOLOGY ORDE KACY Final Result [facility] [address] [place] [address], [facility] [phone] from Last 3 Months Additional Health Concerns Infection Onset Date Last Indicated MRSA Comment:Abscess right upper posterior leg 11/06/24; 11/06/2024 Insurance [employer] Member Subscriber Plan / Payer (Ef fective 2014-Present) Name:Aline Anderson Member ID:[id number] Relation to Subscriber:Self Name:Aline Anderson Subscriber ID:[id number] Payer ID:Not on file Type:HMO Address: [facility] [id number] [place] [phone] [employer] Member Subscriber Plan / Payer (Ef fective for All Dates) Name:Aline Anderson Member ID:[id number] Relation to Subscriber:Self Name:Aline Anderson Subscriber ID:[id number] Payer ID:Not on file Group ID:Not on file Type:O Address: [facility] [id number] [place] [phone] [employer] Member Subscriber Plan / Payer (Ef fective for All Dates) Name:Aline Anderson Member ID:[id number] Relation to Subscriber:Self Name:ALINE ANDERSON W Subscriber ID:[id number] Payer ID:Not on file Type:O Address: [facility] [id number] [address] [employer] GENERIC [employer] Care Teams Assistant Tennis Coach Relationship Specialty Start Date End Date Patric Vaughn MD [address] [place] [phone] PCP - General Hospitalist 12/08/24 Claude Jason MD [address] [place] [address] 07/05/20 Claude Jason MD [address] [place] [address] Internal Medicine 07/05/20
--- OUTSIDE RECORDS SUMMARY | 2025-02-03 14:20 | XMS_ITS | Referral Summary ---
Author Organization [facility] [address] Address [address] [place] [address] Care Team Providers Care Softball Coach Name Role Phone Patric Vaughn MD Primary Care Provider [phone] Allergies No known active allergies Medications multivitamin [...] 07/27/2022 Assessment & Plan (07/27/2022 1:22 PM SHADE BANDER): Keflex to prevent progression to cellulitis F/u [...] with testosterone in the past. Referred to Legislative Advocate. Resolved Problems Problem Noted Date Diagnosed Date Resolved Date Obesity (BMI 30-39.9) 11/12/20182021 Assessment & Plan (07/03/2019 8:23 AM SHADE BANDER): BMI Follow-up includes: education provided. Immunizations Immunization [...] on file Legal Sex Male 2:44 AM SHADE BANDER Gender Identity Not on file Sexual Orientation Straight 06/07/2022 10 :54 AM CDT Last Filed Vital Signs Vital Sign Reading Time Taken Comments Blood Pressure 130/70 10/14/2024 4:29 PM SHADE BANDER Pulse 113 10/14/2024 4:29 PM SHADE BANDER Temperature 36.9 C (98.4 F) 10/14/2024 4:29 PM SHADE BANDER Respiratory Rate 18 10/14/2024 4:29 PM SHADE BANDER Oxygen Saturation 97% 10/14/2024 4:29 PM SHADE BANDER Inhaled Oxygen Concentration - - Weight 78.9 kg (174 lb) 10/14/2024 4:29 PM SHADE BANDER Height 165.1 cm (5' 5) 10/14/2024 4:29 PM SHADE BANDER Body Mass Index 28.96 10/14/2024 4:29 PM SHADE BANDER Plan of Treatment Not on file Procedures [...] last revised on 2019. Testing performed by: [facility], [address] [place] [address], [place]., [address] Blood 12/05/2023 12:5 6 PM CDT 12/05/2023 4:59 PM CDT us Patric Vaughn MD LAB MICROBIOLOGY - GENERAL ORDER THAIS Edited Result - Final [facility] [place] [address] from Last 3 Months or Most Recently Relevant to Health Maintenance Insurance Listen Edition [facility] [address] [facility] [address] Care Teams Softball Coach Relationship Specialty Start Date End Date Patric Vaughn MD PCP - General Family Medicine 12/05/21
--- OUTSIDE RECORDS SUMMARY | 2025-02-03 14:20 | XMS_ITS | Encounter Summary ---
Author Organization [facility] Address [address] [place] [address] Phone Care Team Providers Care Paint Stock Clerk Name Role Phone Patric Vaughn MD Primary Care Provider [phone] Reason for Visit * Reason Comments Medication Refill Encounter Details Date Type Department Care Team (Late st Contact Info) Description 12/12/2022 Refill [facility] [address] [place] [address] Marty Alicea MD [address] [address] Medication Refill Social History Tobacco Use Types [...] on file Legal Sex Male 5:35 PM OCC THERAPIST Gender Identity Not on file Sexual Orientation [...] Dept 01/26/22 Office Visit Marty Alicea MD [facility] [place] Showing recent visits within past [...] documented as of this encounter Care Teams Paint Stock Clerk Relationship Specialty Start Date End Date Patric Vaughn MD [address] [place] [address] PCP - General Automatic Door Mechanic 01/28/22 documented as of this encounter
--- OUTSIDE RECORDS SUMMARY | 2025-02-03 14:20 | XMS_ITS | Encounter Summary ---
Author Organization [facility] Address [address] [place] [address] Phone Care Team Providers Care Poultry Slaughterer Name Role Phone Patric Vaughn MD Primary Care Provider [phone] Reason for Visit * Reason Comments Medication Refill Encounter Details Date Type Department Care Team (Late st Contact Info) Description 07/17/2022 Refill [facility] [address] [place] [address] Marty Alicea MD [address] [address] Medication Refill Social History Tobacco Use Types [...] on file Legal Sex Male 5:35 PM GUIDE DOG TRAINER Gender Identity Not on file Sexual Orientation [...] Dept 01/26/22 Office Visit Marty Alicea MD [facility] [place] Showing recent visits within past 365 days and meeting all other requirements Future Appointments No visits were found meeting these conditions. Showing future appointments within next 90 days and meeting all other requirements E DOG TRAINER documented in this encounter Plan of Treatment Not on file documented as of this encounter Visit Diagnoses Diagnosis Testicular hypofunction- Primary Other testicular hypofunction documented in this encounter Additional Health Concerns Infection Onset Date Last Indicated Resolved Time MRSA 05/26/2023 05/26/2023 Assessment Noted Time PHQ-9 Depression Total Score: 0 06/18/20 20 2:00 PM CDT documented as of this encounter Care Teams Poultry Slaughterer Relationship Specialty Start Date End Date Patric Vaughn MD [address] [facility] [address] [place] [address] PCP - General Marriage And Family Counselor 01/28/22 documented as of this encounter
--- OUTSIDE RECORDS SUMMARY | 2025-02-03 14:20 | XMS_ITS | Clinical Summary ---
Author Organization [facility] [address] [place] [address] Care Team Providers Care Server Name Role Phone Patric Vaughn MD Primary Care Provider [phone] Allergies No known active allergies Medications multivitamin [...] 07/27/2022 Assessment & Plan (07/27/2022 1:22 PM OINTMENT MILL TENDER): Keflex to prevent progression to cellulitis F/u [...] with testosterone in the past. Referred to Lead Oxide Mill Tender. Resolved Problems Problem Noted Date Diagnosed Date Resolved Date Obesity (BMI 30-39.9) 11/12/20182021 Assessment & Plan (07/03/2019 8:23 AM OINTMENT MILL TENDER): BMI Follow-up includes: education provided. Immunizations Immunization [...] on file Legal Sex Male 2:44 AM OINTMENT MILL TENDER Gender Identity Not on file Sexual Orientation Straight 06/07/2022 10 :54 AM CDT Obstetrics History Last Filed Vital Signs Vital Sign Reading Time Taken Comments Blood Pressure 130/70 10/14/2024 4:29 PM OINTMENT MILL TENDER Pulse 113 10/14/2024 4:29 PM OINTMENT MILL TENDER Temperature 36.9 C (98.4 F) 10/14/2024 4:29 PM OINTMENT MILL TENDER Respiratory Rate 18 10/14/2024 4:29 PM OINTMENT MILL TENDER Oxygen Saturation 97% 10/14/2024 4:29 PM OINTMENT MILL TENDER Inhaled Oxygen Concentration - - Weight 78.9 kg (174 lb) 10/14/2024 4:29 PM OINTMENT MILL TENDER Height 165.1 cm (5' 5) 10/14/2024 4:29 PM OINTMENT MILL TENDER Body Mass Index 28.96 10/14/2024 4:29 PM OINTMENT MILL TENDER Plan of Treatment Health Maintenance Due Date [...] last revised on 2019. Testing performed by: [facility], [address] [place] [address]., [id number] Blood 12/05/2023 12:5 6 PM CDT 12/05/2023 4:59 PM CDT us Patric Vaughn MD LAB MICROBIOLOGY - GENERAL ORDER THAIS Edited Result - Final [facility] 1 [facility] [place] [address] from Last 3 Months or Most Recently Relevant to Health Maintenance Insurance [employer] [facility] COUNTS INCLUDE [address] [facility] AT [facility] [phone] COUNTS INCLUDE [address] [facility] AT [facility] [address] Care Teams Server Relationship Specialty Start Date End Date Patric Vaughn MD PCP - General Family Medicine 12/05/21
--- OUTSIDE RECORDS SUMMARY | 2025-02-03 14:20 | XMS_ITS | Encounter Summary ---
Author Organization [facility] Address [address] [place] [address] Phone Care Team Providers Care Passenger Car Conductor Name Role Phone Patric Vaughn MD Primary Care Provider [phone] Reason for Referral * Consult, Test & Initiate Treatment (Routine) - Open Specialty Diagnoses / Procedures Referred By Contac t Referred To Contact Diagnoses Abscess Yadira Whitlock APRN, JUDY [address] [place] [address] Phone: tel: fax: Kuldip John MD [facility] [place] [address] Phone: tel: fax: Referral ID Status Reason Start Date Expiration Date Visits Re quested Visits Authorized [id number] Open 02/02/2025 1 1 Scheduling Instructions Please evaluate abscess site to left nose region. Reason for Visit * Reason Comments Skin Problem Skin infection on no se since for a week and it just keeps getting worseDoes not itchBacitracin usedNo fever noted Encounter Details Date Type Department Care Team (Latest Contact Info) Description 02/02/2025 10:05 AM CDT Urgent Care Visit [facility] [address] [place] [address] Yadira Whitlock APRN, HANDLE ASSEMBLER [address] [place] [address] Abscess (Primary Dx) Social History Tobacco Use [...] How often do you attend chur or protestant services? More than 4 times per year 02/02/2025 Do you belong to any clubs o r organizations such as jainism groups, unions, fraternal or athletic groups, or [...] care, and heating? Not very hard 02/02/2025 [facility] - Occupational Stress [...] any time in the past 12 m [facility], were you homeless or living in a senior care (including now)? No 02/02/2025 [facility] Utilities Answer Date Recorded In the past 12 months has th e electric, gas, oil, or water company threatened to shut off services in your home? No 02/02/2025 Sexually Active Control Partners Comments Yes Surgical Female Sex and Gender Information Value Date Recorded Sex Assigned at Not on file Legal Sex Male 5:35 PM AUTO CUSTOMIZE PAINTER Gender Identity Not on file Sexual Orientation [...] sent through Care Everywhere. * Skin Abscess (Haitian) * Cellulitis Adult Lugh-zu-Qget (Haitian) documented in this encounter Progress Notes * Yadira Whitlock APRN, HANDLE ASSEMBLER - 02/02/2025 10:05 AM CDT Images from [...] Follow these instructions at home: Medicines Take ppbg-afz-ycfadxh and prescription medicines only as told by [...] and water are not available, use hand color mixer. Check your abscess every day for signs [...] provider. Document Revised: 05/22/2022 Document Reviewed: 05/22/2022 [employer] Patient Education ?? 2021 [employer]. Cellulitis, Adult Cellulitis is a skin infection. [...] Follow these instructions at home: Medicines Take ryro-otx-fhzmacq and prescription medicines only as told by [...] provider. Document Revised: 05/25/2022 Document Reviewed: 05/25/2022 [employer] Patient Education ?? 2021 [employer] [1] Current Outpatient Medications on File Prior to Visit Medication Sig Dispense Refill yusyncy-brfysluqvnntl-gmvmpidp (EXCEDRIN EXTRA STRENGTH) 250-250-65 MG Tablet busPIRone [...] documented as of this encounter Care Teams Passenger Car Conductor Relationship Specialty Start Date End Date Patric Vaughn MD [address] [facility] [address] [place] [place] [id number] PCP - General Entertainment Centre Manager 01/28/22 documented as of this encounter
== END 2025-02-03 13:40 | disposition home or self-care (01) ==
LOC: ANHED 13:18
PROVIDERS: Emergency Provider Emergency Medicine
DX: J32.9 Chronic sinusitis, unspecified (principal); B95.7 Other staphylococcus as the cause of diseases classified elsewhere; Z98.84 Bariatric surgery status
CPT/HCPCS: 99283